=== PATIENT | female | born 1995 | race American Indian/Alaskan Native ===

== ENCOUNTER 2016-07-20 20:48 | Emergency (ER) | payer SELFPAY ==
[2016-07-20 20:57] VITALS: BP 104/69
--- NOTE | 2016-07-20 21:37 | Emergency Department Report ---
ED ENT HPI - General Chief complaint: Sore Throat Stated complaint: SORE THROAT Time Seen by Provider: 07/20/16 21:32 Source: patient Mode of arrival: Ambulatory Limitations: No Limitations - History of Present Illness Initial comments: Patient reports sore throat with painful swallowing that started 3 days ago. complaint: sore throat Onset/Timin -: days(s) Location: throat Severity: severe Severity scale (0 -10): 7 Quality: aching Consistency: constant Improves with: none Worsens with: swallowing, eating Context-Epistaxis: other (none) Context- Dental: other (none) Context- Ear: other (none) Associated Symptoms: pain with swallowing, sore throat - Related Data Previous Rx's Medication Instructions Recorded Last Taken Type Acetaminophen [Tylenol] 500 mg PO Q6HR #20 tablet 07/20/16 Unknown Rx Cetirizine HCl [ZyrTEC] 10 mg PO DAILY #30 capsule 07/20/16 Unknown Rx Allergies Allergy/AdvReac Type Severity Reaction Status Date / Time No Known Allergies Allergy Unverified 07/20/16 20:54 ED Dental HPI - General Chief complaint: Sore Throat Stated complaint: SORE THROAT Source: patient Mode of arrival: Ambulatory Limitations: No Limitations - Related Data Previous Rx's Medication Instructions Recorded Last Taken Type Acetaminophen [Tylenol] 500 mg PO Q6HR #20 tablet 07/20/16 Unknown Rx Cetirizine HCl [ZyrTEC] 10 mg PO DAILY #30 capsule 07/20/16 Unknown Rx Allergies Allergy/AdvReac Type Severity Reaction Status Date / Time No Known Allergies Allergy Unverified 07/20/16 20:54 ED Review of Systems ROS: Stated complaint: SORE THROAT Other details as noted in HPI Constitutional: denies: chills, diaphoresis, fever, malaise, weakness Eyes: denies: eye pain, eye discharge, vision change ENT: throat pain. denies: ear pain, dental pain, hearing loss, epistaxis, congestion Respiratory: denies: cough, orthopnea, shortness of breath, SOB with exertion, SOB at rest, stridor, wheezing Cardiovascular: denies: chest pain, palpitations, dyspnea on exertion, orthopnea , edema, syncope, paroxysmal nocturnal dyspnea Skin: denies: rash, lesions, change in color, change in hair/nails, pruritus ED Past Medical Hx - Past Medical History Previous Medical History?: No - Surgical History Past Surgical History?: No - Social History Smoking Status: Never Smoker Substance Use Type: Alcohol - Medications Home Medications: Home Medications Medication Instructions Recorded Confirmed Last Taken Type Acetaminophen [Tylenol] 500 mg PO Q6HR #20 tablet 07/20/16 Unknown Rx Cetirizine HCl [ZyrTEC] 10 mg PO DAILY #30 capsule 07/20/16 Unknown Rx ED Physical Exam - General Limitations: No Limitations General appearance: alert, in no apparent distress - Head Head exam: Present: atraumatic, normocephalic, normal inspection - Eye Eye exam: Present: normal appearance, PERRL, EOMI Pupils: Present: normal accommodation - ENT ENT exam: Present: normal orophraynx, mucous membranes moist, TM's normal bilaterally, normal external ear exam, other (swelling to nasal turbinates). Absent: mucous membranes dry - Expanded ENT Exam Expanded Ear exam: Present: normal external inspection. Absent: auricular hematoma, auricular trauma Mouth exam: Present: normal external inspection, tongue normal. Absent: drooling, trismus, muffled voice, tongue elevation, laceration Teeth exam: Present: normal inspection Throat exam: Positive: tonsillar erythema. Negative: tonsillomegaly, tonsillar exudate, R peritonsillar mass, L peritonsillar mass - Neck Neck exam: Present: normal inspection, full ROM. Absent: tenderness, meningismus, lymphadenopathy, thyromegaly - Respiratory Respiratory exam: Present: normal lung sounds bilaterally. Absent: respiratory distress, wheezes, rales, rhonchi, stridor, chest wall tenderness, accessory muscle use, decreased breath sounds, prolonged expiratory - Cardiovascular Cardiovascular Exam: Present: regular rate, normal rhythm, normal heart sounds. Absent: systolic murmur, diastolic murmur, rubs, gallop, clicks, JVD, S3, S4 - Neurological Exam Neurological exam: Present: alert, oriented X3, CN II-XII intact, normal gait, reflexes normal. Absent: motor sensory deficit - Skin Skin exam: Present: warm, dry, intact, normal color. Absent: rash ED Course Vital Signs 07/20/16 20:55 Temperature 98.8 F Pulse Rate 76 Respiratory 16 Rate Blood Pressure 104/69 O2 Sat by Pulse 97 Oximetry - Reevaluation(s) Reevaluation #1: 07/20/16 21:38 Laboratory studies ordered ED Medical Decision Making - Lab Data Microbiology 07/20/16 21:30 Group A Streptococcus Rapid Screen - Final Throat Negative Vital Signs 07/20/16 20:55 Temperature 98.8 F Pulse Rate 76 Respiratory 16 Rate Blood Pressure 104/69 O2 Sat by Pulse 97 Oximetry - Medical Decision Making During The course of ED, laboratory study was ordered. The study was negative for Strep A. patient was sent home with prescription for Tylenol and Zyrtec, instructed to gargle with warm salt water 3 times a day, follow with selective referrals given at discharge, she verbalize understanding - Differential Diagnosis Rhinitis, Streptocccocus Pharyngitis, Upper Resp Infection Critical care attestation.: If time is entered above; I have spent that time in minutes in the direct care of this critically ill patient, excluding procedure time. ED Disposition Clinical Impression: Rhinitis Qualifiers: Rhinitis type: unspecified Qualified Code(s): J31.0 - Chronic rhinitis Disposition: DISCHARGED TO HOME OR SELFCARE Is pt being admited?: No Does the pt Need Aspirin: No Condition: Stable Instructions: Allergic Rhinitis (ED), Cold Symptoms (ED) Additional Instructions: Take medication as directed. Follow with the selective referrals given at discharge. Gargle with warm salt water 3 times a day Prescriptions: Acetaminophen [Tylenol] 500 mg PO Q6HR #20 tablet Cetirizine HCl [ZyrTEC] 10 mg PO DAILY #30 capsule Referrals: PRIMARY CARE, [Primary Care Provider] - 3-5 Days [facility] [Outside] - 3-5 Days Forms: Work/School Release Form(ED) Time of Disposition: 21:53
== END 2016-07-20 22:02 | disposition home or self-care (01) ==
LOC: ED 20:48
DX: J31.0 Chronic rhinitis (principal)
CPT/HCPCS: 87116; 87430; 99282